=== PATIENT | male | born 1945 | race Caucasian/White ===

== ENCOUNTER 2025-06-06 19:48 | Inpatient (IN) | payer MEDICARE, OTHER, SELFPAY ==
[2025-06-06 15:31] VITALS: BP 158/103
[2025-06-06] MEDS: TYLENOL 1000 MG PO (18:04)
[2025-06-06 18:09] VITALS: BP 155/87
--- NOTE | 2025-06-06 19:09 | HPS.HSE ---
Family Physician
-
Family Physician: NOT KNOW UNKNOWN - PT DOES
Chief Complaint
-
right LE pain s/p fall
History of Present Illness
79-year-old with past medical history for essential hypertension presented to us status post fall at home. He tripped on the cell phone wire last night and landed on his buttocks. Since then he is complaining of right lower extremities pain.
Patient is not able to bear any weight on his right lower extremity. He is not able to rotate his right lower extremity. Patient denied any headache, dizzy or syncope. Patient denied any fever, chills, cough, congestion. Patient denied any chest
pain or short of breath. Patient denied any abdominal pain, nausea, vomiting or diarrhea. Patient denied dysuria hematuria.
Lucency through the subcapital region of the right proximal femur, persistent on all views, compatible with a nondisplaced subcapital fracture.
Admitting for further management
Medical History
Past Medical History
Past Medical History: Reports Other
Additional Past Medical History:
Hypertension, dyslipidemia, obstructive sleep apnea, external hemorrhoids, right ankle fracture, colonic polyps, cataracts, glaucoma, right retinal detachment, chronic sinus disease, hypersomnia, and diverticular disease, anxiety, bilateral
BPH, right knee arthritis
Past Surgical History: Reports Other
Additional Past Surgical History:
3 lumbar laminectomy
Left bunionectomy
ORIF right ankle with retained hardware
Bilateral cataract extraction
Social History
Tobacco: Non-smoker
Alcohol: None
Drug: None
Family History
Family History: Not pertinent
Allergies / Home Medications
Allergies reflects when Allergies were last updated in [facility].
Home Medications with original date entered in [facility]
Allergy/Medication List:
Allergies
Allergy/AdvReac Type Severity Reaction Status Date / Time
venom-honey bee (bee venom Allergy Swelling Verified 06/06/25 15:35
(honey bee))
Home Medications
zolpidem 10 mg tablet 10 mg PO HSPRN PRN sleep 09/16/13
valsartan 160 mg-hydrochlorothiazide 12.5 mg tablet 1 tab PO DAILY 06/06/25
zaleplon 10 mg capsule 10 mg PO DAILY 06/06/25
Review of Systems
-
Constitutional: Reports No Symptoms
EENT: Reports No Symptoms
Respiratory: Reports No Symptoms
Cardiac: Reports No Symptoms
Abdomen/GI: Reports No Symptoms
: Reports No Symptoms
Musculoskeletal: Reports Other (Right lower extremity pain)
Skin: Reports No Symptoms
Neurological: Reports No Symptoms
Endocrine: Reports No Symptoms
Hematologic/Lymphatic: Reports No Symptoms
Psych: Reports No Symptoms
Physical Exam
Vital Signs
Vital Signs
Temp Pulse Resp BP Pulse Ox
98.7 F 79 16 155/87 98
06/06/25 15:31 06/06/25 15:31 06/06/25 15:31 06/06/25 18:09 06/06/25 15:31
Physical Exam
General: Well Developed, Well Nourished and No Apparent Distress
HEENT: NormoCephalic, Moist mucous membranes and Atraumatic
Respiratory: Clear
Cardiac: S1/S2 and Regular Rhythm; No Murmur or Rub
GI: Soft, Non Tender, Non Distended and Normal Bowel Sounds; No Organomegaly
Rectal: Deferred by Provider
Musculoskeletal: No Clubbing, No Cyanosis and No Edema
Skin: No Rash
Neuro: AO x 3 and Nonfocal/grossly intact
Psych: Calm
Data Reviewed
-
Diagnostic Radiology: Report Reviewed by me
Lab Data: Labs Reviewed by me
Impression/Plan
-
# Nondisplaced subcapital femoral fracture
- Orthopedics consulted
- Oxy, Tylenol, Dilaudid for pain
- X-ray of femur with impression of Lucency through the subcapital region of the right proximal femur, persistent on all views, compatible with a nondisplaced subcapital fracture.
- Will keep patient n.p.o. after midnight
# Essential hypertension
-Valsartan HCTZ continued
# DVT prophylaxis
-SCD
# CODE STATUS
-Full code
--- NOTE | 2025-06-06 19:11 | W.PN.UPDATE ---
Update Note
Progress Note Update
Patient seen in conjunction with [employer] [employer]. I agree with the findings on history and physical. I concur with the assessment and plan unless stated otherwise.
Briefly, this is a 79-year-old male with past medical history of HTN presenting to the emergency department with right-sided hip pain following a fall last night. He tripped over a piece of wire and landed on his sacrum. Immediate pain but was
initially able to get back up and ambulate. This am reports severe pain with any degree of ambulation. Denies any previous falls. Denies any old fractures. He is not on any thinners and did not strike his head.
In the emergency department he was hemodynamically stable, blood pressure was 155/87 pulse rate of 79 he was satting 98% on room air. He was afebrile with a temp of 98.7.
Labs are pending
Hip x-ray shows lucency through the subcapital region of the right proximal femur, persistent on all views, compatible with a nondisplaced subcapital fracture.
Assessment and plan:
Right subcapital hip fracture in the right proximal femoral. Non-displaced
- Admit to MedSurg, possible ORIF vs hemiarthroplasty management
- Ortho consult
- Fracture order set with appropriate pain control
- PT consultation
- Hold off on thinners for now, SCDs for now pending Ortho consultation
- Continue regular diet till midnight, then npo pending Ortho consultation
- gentle hydration overnight
DVT prophylaxis�SCDs
CODE STATUS�full code
--- NOTE | 2025-06-06 19:11 | ED.GENMED ---
History of Present Illness
General
Chief Complaint: Fall
Source: patient
Time Seen by Provider: 06/06/25 16:42
History of Present Illness
History of Present Illness:
79-year-old male presents to the emergency room complaining of right thigh and hip pain. Patient fell last night after getting out of bed to go to the bathroom. He tripped over his cell phone charging wire. Patient was unable to get up for a
period of time but ultimately worked his way to the bed and got up and rolled into bed. He got up and again in the middle night to urinate and mated to the bathroom with significant pain with weightbearing. No other injuries. Patient does not
take any prescription medications. He denies any significant medical history.
Past History
Past History
ED Past Medical History: HTN and Other (Sleep apnea)
ED Past Surgical History: None
Social History
Tobacco: Former smoker
Alcohol: Occasional
Personal:
Living: with family
Phy Exam
Physical Exam
Physical Exam:
General: Awake, Alert, Oriented X3. No acute distress.
Vitals: unremarkable
Head: Atraumatic
Eyes: Pupils equal, EOMI
Throat: Airway intact, no exudates
Neck: Trachea midline
Lungs: Clear and equal b/l
Heart: Regular rate, no murmurs
Abd: Soft, Nontender, No pulsatile mass
Neuro: Nonfocal
Skin: Warm, dry, no rash
Extremities: pulses equal b/l, no edema. Pain with flexion at the right hip. Pain with palpation to the proximal right hip and groin.
Course
Orders/Labs/Results
Orders:
Orders
06/06/25 17:10
Acetaminophen [Tylenol] 1,000 mg PO NOW STA
CR Pelvis - 1 Or 2 Views Urgent
Reason For Exam: fall, pain
Femur, Right 2 View [CR Femur - Right Min 2 Vw] Urgent
Comment:
Reason For Exam: pain after a fall
06/06/25 18:58
Type+Screen Urgent
Complete Blood Count/With Diff Urgent
Comprehensive Metabolic Panel Urgent
06/06/25 18:59
Acetaminophen [Tylenol] 1,000 mg PO NOW STA
Vital Signs
Initial and Last Documented VS:
Initial Vital Signs
Temp Pulse Resp BP Pulse Ox
98.7 F 79 16 158/103 98
06/06/25 15:31 06/06/25 15:31 06/06/25 15:31 06/06/25 15:31 06/06/25 15:31
Last Documented Vital Signs
Temp Pulse Resp BP Pulse Ox
98.7 F 79 16 155/87 98
06/06/25 15:31 06/06/25 15:31 06/06/25 15:31 06/06/25 18:09 06/06/25 15:31
MDM/Problems Addressed
Differential Diagnosis Includes:
Hip fracture, pelvic fracture, hip contusion, muscle tear
MDM/Problems Addressed:
Patient presents with significant pain with weightbearing and certain range of motion of the right hip.
*Radiology
Radiology exam reviewed: preliminary read by ED provider (Subcapital fracture noted which is nondisplaced on my review of the patient's x-ray)
*Pulse Oximetry
SaO2: 98
Oxygen Mode of Delivery: Room air
Patient hypoxic: no
*Critical Care Note
Total Time (30-74mins, 75-104mins- exclusive of procedures): Not Applicable
ED Attending Note
-
Portions of this chart may have been created with voice recognition software.� Occasional wrong word or��sound alike� substitutions may have occurred due to the inherent limitations of voice recognition software.
Discharge Plan
Departure
Patient Disposition: Admit
Date of Disposition: 06/06/25
Time of Disposition: 19:11
Presentation/result/management discussed w/ accepting MD/DO: Hospitalist
Condition: Fair
Discharge Problem:
Subcapital fracture of right hip
Prescriptions:
No Action
Atanaprost
1 drp BOTH EYES HS
multivitamin [Daily Multiple] 1 EACH tablet
1 ea PO DAILY
fiber 1 EACH tablet
1 tab PO DAILY
zolpidem 10 MG tablet
10 mg PO HSPRN PRN (Reason: sleep)
olmesartan 20 MG tablet
10 mg PO DAILY
Patient Comments:
Pt states he took his am dose at 06:00 am and a second dose at 15:00 (noted 09/16/13).
Timolol
1 drp BOTH EYES DAILY
Vitamin D
1 tab PO DAILY
amoxicillin-pot clavulanate 1 TABLET tablet
1 tab PO Q12 Qty: 20 0RF
Referrals:
UNKNOWN - PT DOES,NOT KNOW [Family Provider]
Interventions
Interventions:
*Risk Screen - Suicide Last Done: 06/06/25 15:31
*General Assessment Last Done: 06/06/25 16:19
*Neglect/Abuse Screening Last Done: 06/06/25 15:31
*ED- Fall Risk Assessment Last Done: 06/06/25 16:19
*ED COVID-19 Vaccine History Last Done: 06/06/25 16:19
ED-Musculoskeletal Assessment Last Done: 06/06/25 16:19
ED- Neurological Assessment Last Done: 06/06/25 16:19
ED-Skin Assessment Last Done: 06/06/25 16:19
Discharge Date and Time
Print Language: FAROESE
[2025-06-06 19:52] LABS: Hematocrit 41.8 % (39.0-52.0); Hemoglobin 14.6 g/dL (13.0-18.0); Mean Corp Hgb Conc. 34.9 g/dL (33.0-37.0); Mean Corpuscular Volume 85.5 fL (80.0-94.0); Nucleated Red Blood Cells % 0 % (-); Platelet Count 269 10^3/uL (130-400); Red Cell Dist. Width 13.6 % (11.5-14.5)
[2025-06-06] MEDS: DILAUDID 0.5 MG IV (20:06)
[2025-06-06 20:11] LABS: ALT (SGPT) 52 U/L (0-50); AST (SGOT) 45 U/L (17-59); Albumin 4.6 g/dl (3.5-5.0); Alkaline Phosphatase 60 U/L (38-126); Blood Urea Nitrogen 17 mg/dl (9-20); Calcium 10.2 mg/dl (8.4-10.2); Carbon Dioxide 26 mmol/L (22-30); Chloride 101 mmol/L (98-107); Glucose 115 mg/dl (70-99); Potassium 3.9 mmol/L (3.5-5.1); Sodium 137 mmol/L (135-145); Total Protein 7.3 g/dl (6.3-8.2); eGFR > 60.00
[2025-06-06 20:30] VITALS: BP 136/87
--- NOTE | 2025-06-06 20:50 | PTCARENOTE ---
79-year-old male presents to the ED complaining of right thigh and hip pain post fall, R Femur/Hip X-rays indicate Right proximal femur nondisplaced subcapital fracture., Arrived from ED at 20:38 to 2s, PMH sleep apnea, HTN, Former Smoker (decades
ago). Pt wear CPAP at home, but did not bring it. He is using 2L NC overnight. Pt on Regular diet, NPO at midnight for possible surgery tomorrow. Pt AOx3, bed in a low position, pain assessed, call light in reach, care ongoing.
[2025-06-06] MEDS: COLACE 100 MG PO (21:28)
[2025-06-06] MEDS: SENOKOT 17.2 MG PO (21:28)
[2025-06-06] MEDS: ROXICODONE 5 MG PO (22:42)
[2025-06-06 23:03] VITALS: BP 150/80
[2025-06-06] MEDS: TYLENOL 650 MG PO (23:55)
[2025-06-07] VITALS (13 sets, daily range): BP systolic 118–177; BP diastolic 56–96; PULSE 78; O2SAT 97–98; BMI 33.1
[2025-06-07] MEDS: TYLENOL 650 MG PO ×4 (04:50→20:50)
--- NOTE | 2025-06-07 07:55 | CON.ORTHO ---
Consultation
-
Date/Time Consultation Requested: 06/06/2025
Date/Time Consultation Performed: 06/07/2025
Requesting Provider: RAIZA Conley
Performing Provider: Areli Alas PA-C, for Dr. Prem Hendricks
Reason for Consultation: Right nondisplaced femoral neck fracture
Consultation - Orthopedics
History
HPI: Skinny is a 79-year-old male who sustained a fall overnight 06/05/2025. He reports he got up in the middle of the night and tripped on his cell phone cord, landing directly on his right hip. He was able to get up, however, had a challenging time
doing so and significant pain. Ultimately, he presented to [facility] emergency department on 06/06/2025. X-rays were taken, demonstrating a subtle lucency, consistent with nondisplaced femoral neck fracture. He denies any prior issues
with his left hip. He denies any medication allergies or prior issues with anesthesia. Our orthopedic specialty was consulted and to discuss definitive management of his right femoral neck fracture. Of note, he lives at home with his who
does have ALS. He is responsible for driving her to her appointments. He is retired.
Past medical history: Significant for hypertension, hyperlipidemia, obstructive sleep apnea, cataracts, glaucoma, right retinal detachment, anxiety, BPH.
Past surgical history: Includes right ankle ORIF, 3 lumbar laminectomies, left bunionectomy, cataract removal.
Social history: Denies tobacco or alcohol use. Lives at home with who has ALS. Independent at baseline.
Family history: Noncontributory.
Review of systems: All systems reviewed and negative except for those mentioned in HPI
Allergies / Home Medications
Allergy/AdvReac Type Severity Reaction Status Date / Time
venom-honey bee (bee venom Allergy Swelling Verified 06/06/25 15:35
(honey bee))
�Medication �Instructions �Recorded
zolpidem 10 mg tablet 10 mg PO HSPRN PRN sleep 09/16/13
valsartan 160 1 tab PO DAILY 06/06/25
mg-hydrochlorothiazide 12.5 mg
tablet
zaleplon 10 mg capsule 10 mg PO DAILY 06/06/25
Vital Signs / Lab Results
Temp Pulse Resp BP Pulse Ox
98.3 F 78 19 150/80 100
06/06/25 23:03 06/06/25 23:03 06/06/25 23:03 06/06/25 23:03 06/06/25 23:03
06/06/25 19:15
06/06/25 18:58
Physical examination:
General: Well-developed, well-nourished male in no acute distress at rest.
HEENT: Atraumatic, normocephalic.
Lungs: Nonlabored breathing. On supplemental oxygen due to sleep apnea.
Heart: Regular rate and rhythm.
Right hip: Mild tenderness to palpation over lateral hip. Sitting with leg and externally rotated position. Range of motion not tested due to known fracture. Calf soft and nontender to palpation. Neurovascularly intact distally, able to
dorsiflex and plantarflex ankle without difficulty.
Radiographic studies:
X-rays of the right hip demonstrate a linear lucency, consistent with nondisplaced femoral neck fracture.
Assessment / Plan
Assessment: Right hip nondisplaced femoral neck fracture.
Plan: Unfortunately, Mr. Maldonado sustained a nondisplaced femoral neck fracture during his fall. We discussed both nonsurgical and surgical options going forward. At this time, recommendation is to proceed with a right hip closed reduction,
percutaneous pinning of femoral neck fracture. The surgery was explained in detail along with the associated risk, benefits, recovery process. Surgical and blood transfusion consents were obtained and placed at the OR computer help desk representative. The plan is to
proceed with surgery later today under the direction of Dr. Hendricks. The right hip was marked as the correct surgical location. Patient will remain NPO. IV antibiotics on-call to the OR. Type and screen has been performed. Patient was in agreement
with treatment recommendations and all questions were answered.
[2025-06-07] MEDS: DIOVAN 160 MG PO (08:43)
[2025-06-07] MEDS: COLACE 100 MG PO ×2 (08:43→20:50)
[2025-06-07] MEDS: SENOKOT 17.2 MG PO ×2 (08:45→20:50)
[2025-06-07] MEDS: ORETIC 12.5 MG PO (08:45)
--- NOTE | 2025-06-07 09:21 | CM ---
Addendum entered by Aj Ross 06/07/25 14:08:
CM spoke to [facility] director digital sales and she confirmed that pt is accepted for admission to [facility] on Tuesday if pt is medicably stable and SNF level of care recommended. Per director digital sales, pt put on potential admission list for
Tuesday.
Original Note:
CM following re: discharge planning.
Reviewed pt's chart, met with pt.
Pt is a 79 year old male, admitted with primary dx of mechanical fall resulted nondisplaced femoral neck fracture. PMH: Significant for hypertension, hyperlipidemia, obstructive sleep apnea, cataracts, glaucoma, right retinal detachment, anxiety,
BPH. OR today for right hip closed reduction, percutaneous pinning of femoral neck fracture.
Pt reports he lives with spouse who has ALS in a 2SH, 3 steps to enter, has 4 supportive sons. 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 No DME, VN or SNF history. pt reports he drives his spouse to appointments.
Pt is aware he might need to go to a SNF for a short term rehab after surgery and pt preferred [facility] SNF. Pt stated 'If I need to go to rehab, [facility] is the choice'. Per pt [facility] is alternative if home PT/OT recommended.
A referral to [facility] made, spoke to director digital sales to look into the referral and to confirm a bed availability on the weekend for pt's admission.
PT and OT will evaluate the pt to determine a level of care at discharge.
PCP: Omar Pro
Pharmacy: [facility]
D/C plan: [facility] SNF is recommended by PT.
CM will follow with discharge plan updates as hospitalization progresses
[2025-06-07 10:40] LABS: Troponin I 0.013 ng/ml
--- NOTE | 2025-06-07 11:11 | W.PN.UPDATE ---
Update Note
Progress Note Update
Pt is medically stable for low-intermediate risk procedure. Benefit of procedure outweighs risk.
[2025-06-07] MEDS: TYLENOL PO (12:00)
[2025-06-07] MEDS: ZOFRAN 4 MG IV (13:12)
[2025-06-07] MEDS: DILAUDID 0.5 MG IV ×2 (13:13→13:29)
--- NOTE | 2025-06-07 15:37 | W.PN.HOSP.TC ---
Today's Communication/Plan
-
see bold
Assessment / Plan
Assessment / Plan
HPI: 79-year-old male with past medical history of HTN presenting to the emergency department with right-sided hip pain following a fall last night. He tripped over a piece of wire and landed on his sacrum. Immediate pain but was initially able to
get back up and ambulate. This am reports severe pain with any degree of ambulation. Denies any previous falls. Denies any old fractures. He is not on any thinners and did not strike his head.
# Nondisplaced subcapital femoral fracture
Appreciate orthopedic surgery input, status post right hip ORIF
Weightbearing as tolerated, PT/OT, pain control, laxatives
#Leukocytosis
Likely reactive
Patient is afebrile, no signs or symptoms of infection
# Essential hypertension
Continue valsartan-HCTZ
# DVT prophylaxis -aspirin 325 mg daily through 07/04 as per ortho
# CODE STATUS -Full code
Total time spent to see the patient on the floor, examine the patient, review data and lab results, discuss treatment plan with patient, nursing staff around 45 minutes.
Physical Exam
General: No acute distress
HEENT: Normocephalic, Atraumatic, EOMI, MMM
Respiratory: Clear to Auscultation bilaterally
Cardiac: Normal S1/S2, Regular Rate and Rhythm
GI: Soft, Nontender, Nondistended, Normal Bowel Sounds
Extremities:
Right hip incision dressed
Neuro: Nonfocal/Grossly Intact
Anticipated Discharge: 24 - 48 hours
Subjective/Interval History
-
Date of Service: June 07, 2025
Patient reports his right hip pain is tolerable. Denies nausea, vomiting. No chest pain, no shortness of breath. No fever.
Objective Data
-
Labs:
Laboratory Results
06/06/25
18:58
Sodium 137
Potassium 3.9
Chloride 101
Carbon Dioxide 26
BUN 17
Creatinine 0.8
Glucose 115 H
Calcium 10.2
Total Bilirubin 1.0
AST 45
ALT 52 H
Alkaline Phosphatase 60
Vital Signs:
Vital Signs
Temp Pulse Resp BP Pulse Ox
98.3 F 78 19 150/80 100
06/06/25 23:03 06/06/25 23:03 06/06/25 23:03 06/06/25 23:03 06/06/25 23:03
I&O
06/06/25 06/07/25 06/08/25
06:59 06:59 06:59
Intake Total 480 / 480
Output Total 800 / 800
Balance -320 / -320
[2025-06-07] MEDS: MIRALAX 17 GRAMS PO (16:45)
[2025-06-07] MEDS: ASPIRIN 325 MG PO (18:29)
[2025-06-07] MEDS: ANCEF 5 IV (20:50)
[2025-06-08] MEDS: TYLENOL PO ×3 (00:15→03:20)
[2025-06-08 02:50] VITALS: BP 105/52
[2025-06-08] MEDS: ANCEF 5 IV (03:17)
[2025-06-08 06:18] LABS: Hematocrit 38.6 % (39.0-52.0); Hemoglobin 13.3 g/dL (13.0-18.0); Mean Corp Hgb Conc. 34.5 g/dL (33.0-37.0); Mean Corpuscular Volume 86.9 fL (80.0-94.0); Platelet Count 262 10^3/uL (130-400); Red Cell Dist. Width 13.7 % (11.5-14.5)
[2025-06-08 06:41] LABS: Blood Urea Nitrogen 24 mg/dl (9-20); Calcium 9.4 mg/dl (8.4-10.2); Carbon Dioxide 26 mmol/L (22-30); Chloride 101 mmol/L (98-107); Estimated Creatinine Clearance 68 ml/min; Glucose 161 mg/dl (70-99); Magnesium 2.4 mg/dl (1.6-2.3); Potassium 4.4 mmol/L (3.5-5.1); Sodium 135 mmol/L (135-145); eGFR > 60.00
[2025-06-08 07:10] VITALS: BP 120/68
[2025-06-08] MEDS: COLACE 100 MG PO ×2 (08:26→19:14)
[2025-06-08] MEDS: ORETIC 12.5 MG PO (08:26)
[2025-06-08] MEDS: ASPIRIN 325 MG PO (08:26)
[2025-06-08] MEDS: DIOVAN 160 MG PO (08:26)
[2025-06-08] MEDS: TYLENOL 650 MG PO ×4 (08:26→19:14)
[2025-06-08] MEDS: SENOKOT 17.2 MG PO ×2 (08:26→19:14)
[2025-06-08] MEDS: MIRALAX 17 GRAMS PO (08:27)
--- NOTE | 2025-06-08 09:22 | W.PN.HOSP.TC ---
Today's Communication/Plan
-
Discharge to [facility] tomorrow
Assessment / Plan
Assessment / Plan
HPI: 79-year-old male with past medical history of HTN presenting to the emergency department with right-sided hip pain following a fall last night. He tripped over a piece of wire and landed on his sacrum. Immediate pain but was initially able to
get back up and ambulate. This am reports severe pain with any degree of ambulation. Denies any previous falls. Denies any old fractures. He is not on any thinners and did not strike his head.
# Nondisplaced subcapital femoral fracture
Appreciate orthopedic surgery input, status post right hip ORIF 06/07 w/ Dr. Hendricks
Weightbearing as tolerated, PT/OT, pain control, laxatives
Dressing to remain in place x 7 days
[place] out at 2 weeks post op
Plan for discharge to short-term rehab at [facility] tomorrow
Follow-up with orthopedic surgery in the office in 2 weeks
#Leukocytosis
Likely reactive
Patient is afebrile, no signs or symptoms of infection
# Essential hypertension
Continue valsartan-HCTZ
# DVT prophylaxis -aspirin 325 mg daily through 07/04 as per ortho
# CODE STATUS -Full code
Total time spent to see the patient on the floor, examine the patient, review data and lab results, discuss treatment plan with patient, nursing staff around 40 minutes.
Physical Exam
General: No acute distress
HEENT: Normocephalic, Atraumatic, EOMI, MMM
Respiratory: Clear to Auscultation bilaterally
Cardiac: Normal S1/S2, Regular Rate and Rhythm
GI: Soft, Nontender, Nondistended, Normal Bowel Sounds
Extremities:
Right hip incision dressed
Neuro: Nonfocal/Grossly Intact
Anticipated Discharge: Within 24 hours
Subjective/Interval History
-
Date of Service: June 08, 2025
Patient reports his right hip pain is tolerable. Denies chest pain, denies shortness of breath. No fever, no vomiting.
Objective Data
-
Labs:
Laboratory Results
06/08/25
05:44
WBC 14.9 H
Hgb 13.3
Hct 38.6 L
Plt Count 262
Sodium 135
Potassium 4.4
Chloride 101
Carbon Dioxide 26
BUN 24 H
Creatinine 1.1
Glucose 161 H
Calcium 9.4
Vital Signs:
Vital Signs
Temp Pulse Resp BP Pulse Ox
97.8 F 62 16 120/68 93
06/08/25 07:10 06/08/25 08:26 06/08/25 07:10 06/08/25 08:26 06/08/25 07:10
I&O
06/07/25 06/08/25 06/09/25
06:59 06:59 06:59
Intake Total 480 / 480 1600 / 1600
Output Total 800 / 800 1940 / 1940
Balance -320 / -320 -340 / -340
--- NOTE | 2025-06-08 10:25 | W.PN.ORTHO ---
Today's Communication / Plan
-
POD #1 s/p right hip CRPP with Dr. Hendricks
-WBAT with walker/assistive device for 6 weeks.
-PT/OT to tolerance.
-Pain control with tylenol prn.
-Aspirin 325 mg po dailyx 4 weeks for DVT prophylaxis.
-Appreciate case management efforts in d/c planning. PT/OT recommending skilled rehab following yesterday's session.
-Dressing to remain in place x 7 days.
-[place] out at 2 weeks post op.
-F/u in office in 4 weeks for repeat x-rays
Assessment
.
Distal Motor Intact: Yes
Dressing:
Clean, dry and intact.
Assessment:
POD #1 s/p right hip CRPP with Dr. Hendricks
-WBAT with walker/assistive device for 6 weeks.
-PT/OT to tolerance.
-Pain control with tylenol prn.
-Aspirin 325 mg po dailyx 4 weeks for DVT prophylaxis.
-Appreciate case management efforts in d/c planning. PT/OT recommending skilled rehab following yesterday's session.
-Dressing to remain in place x 7 days.
-[place] out at 2 weeks post op.
-F/u in office in 4 weeks for repeat x-rays.
Plan
.
Surgery / Date: s/p right hip CRPP with Dr. Hendricks on 06/07/2025
DVT Prophylaxis: Aspirin
Activity:
Out of bed.
PT/OT
Discharge Plan: Rehab
Subjective
.
.:
Patient resting comfortably. Eating breakfast sitting with legs over the side of the bed. Eager to get moving with PT. Hoping to go home upon discharge.
Vital Signs and Labs
.
Vital Signs and Labs:
Lab Results
06/08/25 05:44
06/08/25 05:44
Temp Pulse Resp BP Pulse Ox
97.8 F 62 16 120/68 93
06/08/25 07:10 06/08/25 08:26 06/08/25 07:10 06/08/25 08:26 06/08/25 07:10
Physical Exam
-
Right hip: Dressing is c/d/i with scant drainage. Minimal swelling. ROM without pain. Calf soft and nontender. N/v intact distally
[2025-06-08 11:00] VITALS: BP 127/72
[2025-06-08 12:35] VITALS: BP 147/72; PULSE 75; O2SAT 97
[2025-06-08 15:15] VITALS: BP 135/88
[2025-06-08 22:32] VITALS: BP 112/72
[2025-06-09] MEDS: TYLENOL PO ×2 (00:23→04:55)
[2025-06-09 06:01] LABS: Hematocrit 38.5 % (39.0-52.0); Hemoglobin 13.0 g/dL (13.0-18.0); Mean Corp Hgb Conc. 33.8 g/dL (33.0-37.0); Mean Corpuscular Volume 87.7 fL (80.0-94.0); Platelet Count 259 10^3/uL (130-400); Red Cell Dist. Width 14.2 % (11.5-14.5)
[2025-06-09 07:42] VITALS: BP 119/72
[2025-06-09] MEDS: SENOKOT 17.2 MG PO (07:46)
[2025-06-09] MEDS: DIOVAN 160 MG PO (07:46)
[2025-06-09] MEDS: ORETIC 12.5 MG PO (07:46)
[2025-06-09] MEDS: MIRALAX 17 GRAMS PO (07:46)
[2025-06-09] MEDS: TYLENOL 650 MG PO ×2 (07:46→13:15)
[2025-06-09] MEDS: COLACE 100 MG PO (07:47)
[2025-06-09] MEDS: ASPIRIN 325 MG PO (07:47)
--- NOTE | 2025-06-09 08:43 | W.PN.HOSP.TC ---
Today's Communication/Plan
-
Discharge today
Assessment / Plan
Assessment / Plan
HPI: 79-year-old male with past medical history of HTN presenting to the emergency department with right-sided hip pain following a fall last night. He tripped over a piece of wire and landed on his sacrum. Immediate pain but was initially able to
get back up and ambulate. This am reports severe pain with any degree of ambulation. Denies any previous falls. Denies any old fractures. He is not on any thinners and did not strike his head.
# Nondisplaced subcapital femoral fracture
Appreciate orthopedic surgery input, status post right hip ORIF 06/07 w/ Dr. Hendricks
Weightbearing as tolerated, PT/OT, pain control, laxatives
Dressing to remain in place x 7 days
[place] out at 2 weeks post op
PT now changed their recommendation to home PT
Discharge home with home PT today
Follow-up with orthopedic surgery in the office in 2 weeks
Continue aspirin 325 mg daily through 07/04 for DVT ppx
#Leukocytosis
Likely reactive
Patient is afebrile, no signs or symptoms of infection
# Essential hypertension
Continue valsartan-HCTZ
# DVT prophylaxis -aspirin 325 mg daily through 07/04 as per ortho
# CODE STATUS -Full code
Physical Exam
General: No acute distress
HEENT: Normocephalic, Atraumatic, EOMI, MMM
Respiratory: Clear to Auscultation bilaterally
Cardiac: Normal S1/S2, Regular Rate and Rhythm
GI: Soft, Nontender, Nondistended, Normal Bowel Sounds
Extremities:
Right hip incision dressed
Neuro: Nonfocal/Grossly Intact
Anticipated Discharge: Today
Subjective/Interval History
-
Date of Service: June 09, 2025
Patient has minimal right hip pain. He had a bowel movement. No nausea, no vomiting. No chest pain, shortness of breath. No fever.
Objective Data
-
Labs:
Laboratory Results
06/09/25
04:28
WBC 11.6 H
Hgb 13.0
Hct 38.5 L
Plt Count 259
Vital Signs:
Vital Signs
Temp Pulse Resp BP Pulse Ox
97.5 F 70 16 119/72 97
06/09/25 07:42 06/09/25 07:46 06/09/25 07:42 06/09/25 07:46 06/09/25 07:42
I&O
06/08/25 06/09/25 06/10/25
06:59 06:59 06:59
Intake Total 1600 / 1600 240 / 240
Output Total 1939 / 1939 1000 / 1000
Balance -340 / -340 -760 / -760
--- NOTE | 2025-06-09 10:10 | W.PN.ORTHO ---
Today's Communication / Plan
-
POD #2 s/p right hip CRPP with Dr. Hendricks
-WBAT with walker/assistive device for 6 weeks.
-PT/OT to tolerance.
-Pain control with tylenol prn.
-Aspirin 325 mg po dailyx 4 weeks for DVT prophylaxis.
-Appreciate case management efforts in d/c planning. PT/OT now recommending home with home PT.
-Dressing to remain in place x 7 days.
-[place] out at 2 weeks post op. If able to be done at home, f/u in office in 4 weeks for repeat x-rays.
Assessment
.
Distal Motor Intact: Yes
Dressing:
Clean, dry and intact.
Assessment:
POD #2 s/p right hip CRPP with Dr. Hendricks
-WBAT with walker/assistive device for 6 weeks.
-PT/OT to tolerance.
-Pain control with tylenol prn.
-Aspirin 325 mg po dailyx 4 weeks for DVT prophylaxis.
-Appreciate case management efforts in d/c planning. PT/OT now recommending home with home PT.
-Dressing to remain in place x 7 days.
-[place] out at 2 weeks post op. If able to be done at home, f/u in office in 4 weeks for repeat x-rays.
Plan
.
Surgery / Date: s/p right hip CRPP with Dr. Hendricks on 06/07/2025
DVT Prophylaxis: Aspirin
Activity:
Out of bed.
PT/OT
Discharge Plan: Home
Subjective
.
.:
Patient resting comfortably in bedside chair. reports no pain in his hip. States PT went very well yesterday and he is eager to get home.
Vital Signs and Labs
.
Vital Signs and Labs:
Lab Results
06/09/25 04:28
06/08/25 05:44
Temp Pulse Resp BP Pulse Ox
97.5 F 70 16 119/72 97
06/09/25 07:42 06/09/25 07:46 06/09/25 07:42 06/09/25 07:46 06/09/25 07:42
Physical Exam
-
Right hip: dressing is c/d/i with scant drainage. Mild swelling, no tenderness to palpation. Able to stand without difficulty. Calf is soft and non tender to palpation. N/v intact distally.
[2025-06-09 12:08] VITALS: BP 146/83
--- NOTE | 2025-06-09 12:09 | CM ---
MARCE met with Skinny at bedside regarding VN consult. Pt agreeable to VN and is aware that he will receive a call on Tuesday/Tuesday to schedule start of care.
Pt's son will transport home.
IMM reviewed, signed, and copy of form placed in chart.
--- NOTE | 2025-06-09 12:26 | W.DCSUMMARY ---
Discharge Summary
Discharge Data
Date of Admission: 06/06/25
Date of Discharge: 06/09/25
-
Pending Results: No
Hospital Course
Discharge diagnosis:
Nondisplaced right subcapital femoral fracture
Leukocytosis
Essential hypertension
Consults: Orthopedic surgery
Procedures:
06/07/[address] Hendricks
Hospital course:
79-year-old male with a past medical history of hypertension was admitted for right hip fracture status post mechanical fall. Patient was seen in conjunction with orthopedic surgery. He underwent right hip ORIF on 06/07/2025. He did well
postoperatively. Patient was seen in conjunction with PT, who recommended home with home PT. He is medically stable for discharge. He needs to follow-up with orthopedic surgery in the office in 2 weeks. He is discharged on aspirin 325 mg daily
through 07/04/2025 for DVT prophylaxis.
Disposition: Home with home care
Discharge planning: Required 34-minute
Discharge Plan
-
Patient Disposition: Home with Home Care
Discharge Diagnosis/Procedures: Nondisplaced subcapital femoral fracture status post surgery
Condition: Good
Diet: As tolerated
Activity: As tolerated and With Walker
Driving Restrictions: No driving for 2 weeks
Bathing Restrictions: OK to Shower
Wound Care: Dressing to remain in place x 7 days. May leave incision open to air once dressing is removed. [place] to be taken out at 2 weeks post op. If done at home, f/u in office in 4 weeks. If not able to be removed at home, f/u in office to
remove ed at 2 weeks post op.
Activity Restrictions/Additional Instructions:
Take aspirin 325 mg daily through 07/04/2025 for blood clot prevention, then stop
Weightbearing as tolerated, pain control, laxatives
Dressing to remain in place x 7 days
Ed out at 2 weeks post op
Follow-up with orthopedic surgery in the office in 2 weeks, and your primary care provider in 1 week
Referrals:
Prem Hendricks MD [Active, Orthopedics] - in two to four weeks
UNKNOWN - PT DOES,NOT KNOW [Family Provider] - in one week
Prescriptions:
New
aspirin 325 mg Tablet
325 mg PO DAILY Qty: 25 0RF
oxycodone 5 mg Tablet
5 mg PO Q4HPRN PRN (Reason: mild pain) Qty: 20 0RF
acetaminophen [Acetaminophen Extra Strength] 500 mg tablet
1,000 mg PO TIDPRN PRN (Reason: fever or pain) Qty: 120 0RF
Continued
zolpidem 10 MG tablet
10 mg PO HSPRN PRN (Reason: sleep)
valsartan-hydrochlorothiazide 160-12.5 mg tablet
1 tab PO DAILY
zaleplon 10 mg capsule
10 mg PO DAILY
Discharge Orders:
Discharge Patient (As Directed); Ordered 06/09/25
Ordered By: Nghia Jaffe
Discharge Date and Time
Discharge Date/Time: 06/09/25 14:22
Print Language: GREENLANDIC
[2025-06-09 12:43] VITALS: BP 135/84
== END 2025-06-09 14:22 | disposition home health service (06) | DRG 482 ==
LOC: 2 SOUTH 19:48
PROVIDERS: ADMITTING PHYSICIAN Internal Medicine; ATTENDING PHYSICIAN Family Medicine; CONSULT PHYSICIAN Specialist; EMERGENCY PHYSICIAN Emergency Medicine
PROC: 0QH634Z Insertion of Internal Fixation Device into Right Upper Femur, Percutaneous Approach (ICD-10-PCS; 2025-06-07)
DX: S72.011A Unspecified intracapsular fracture of right femur, initial encounter for closed fracture (principal); W01.0XXA Fall on same level from slipping, tripping and stumbling without subsequent striking against object, initial encounter; I10 Essential (primary) hypertension; D72.829 Elevated white blood cell count, unspecified; E78.5 Hyperlipidemia, unspecified; G47.33 Obstructive sleep apnea (adult) (pediatric); M17.11 Unilateral primary osteoarthritis, right knee; N40.0 Benign prostatic hyperplasia without lower urinary tract symptoms; Z87.891 Personal history of nicotine dependence
CPT/HCPCS: 72170; 73502; 73552; 76000; 80048; 80053; 83735; 84484; 85025; 85027; 86850; 86900; 86901; 93005; 96374; 97116; 97163; 97167; 97530; 97535; 99284; C1713; C1769